=== PATIENT | female | born 1965 | race Two or more races ===

== ENCOUNTER 2023-06-02 08:58 | Day surgery (SDC) | payer OTHER ==
[~2023-06-02] VITALS: Ht 170.2 cm; Wt 99.8 kg
[~2023-06-02 08:58] MED LIST: ALLO100T PO; BENA40TA70 PO; CHLO25TA2 PO; METO-158 PO
[2023-06-02] MEDS ORDERED: IODIXANOL 320MG/ML 100ML BTL IV ONE ×2 (09:48→10:08)
[2023-06-02] MEDS ORDERED: LIDOCAINE 2%HCL (LOCAL ANESTH.) INJ 20ML MDV ONE (09:48)
[2023-06-02] MEDS ORDERED: ANGIOMAX 250 MG VIAL IV ONE (09:59)
[2023-06-02] MEDS ORDERED: MIDAZOLAM HCL 2MG/2ML 2ml VIAL (1mg/ml) ONE (10:00)
[2023-06-02] MEDS ORDERED: VERAPAMIL 2.5MG/ML INJ 2ML VIAL IV ONE (10:00)
[2023-06-02] MEDS ORDERED: SODIUM CHL 0.9% 0 ML ONE (10:00)
[2023-06-02] MEDS ORDERED: fentaNYL CITRATE 100 MCG/2 ML VL ONE (10:00)
[2023-06-02] MEDS ORDERED: HEPARIN SODIUM (PORCINE) 5000 UNITS/ML 1ML VIAL ONE (10:00)
== END 2023-06-02 12:35 | disposition home or self-care (01) ==
LOC: CATH 08:58
PROVIDERS: ATTEND Internal Medicine
DX: R94.39 Abnormal result of other cardiovascular function study (principal); I20.89 Other forms of angina pectoris; I77.1 Stricture of artery; I49.9 Cardiac arrhythmia, unspecified; I10 Essential (primary) hypertension; R73.03 Prediabetes; R07.89 Other chest pain; Z79.899 Other long term (current) drug therapy
CPT/HCPCS: 93005; 93458; C1725; C1894; J1644; J2250; J3010; J7030; Q9967; 99152

== ENCOUNTER 2024-05-30 13:16 | Inpatient (IN) | payer MEDICAID, OTHER ==
[~2024-05-30] VITALS: Ht 170.2 cm; Wt 113.2 kg
[~2024-05-30 13:16] MED LIST changes: -BENA40TA70 PO; +BENA40TA71 PO; +MUPI2OIN2 TOP
[2024-05-30 14:05] LABS: Basophils # (auto) 0 10 ^3/uL (0-0.2); Basophils % (auto) 0.7 % (0.0-2.0); Eosinophils # (auto) 0.1 10 ^3/uL (0-0.8); Eosinophils % (auto) 1.8 % (0.0-7.0); Hematocrit 33.3 % (36.0-46.0); Lymphocytes # (auto) 2.5 10 ^3/uL (0.4-5.4); Mean Corpuscular Hemoglobin 27.7 pg (28.0-32.0); Monocytes # (auto) 0.4 10 ^3/uL (0-1.3); Monocytes % (auto) 5.4 % (0.0-12.0); Neutrophils # (auto) 3.8 10 ^3/uL (1.6-8.6); Neutrophils % (auto) 56.1 % (37.0-80.0); Nucleated Red Blood Cells % 0.2 %; Platelet Count (auto) 202 10^3/uL (140-450); Red Blood Cells 3.96 10^6/uL (4.0-5.20); Red Cell Distribution Width 17.2 % (11.8-14.3); White Blood Cell 6.9 10^3/uL (4.4-10.8)
[2024-05-30] MEDS: ASPirin 325 MG TAB PO ONE (14:05)
[2024-05-30 14:08] LABS: Chloride 110 mmol/L (98-107); Potassium 3.6 mmol/L (3.5-5.1); Sodium 143 mmol/L (136-145)
[2024-05-30 14:09] LABS: Anion Gap 7 (5-15); Calcium 9.2 mg/dL (8.7-10.4); Carbon Dioxide 26 mmol/L (20-31)
[2024-05-30 14:14] LABS: BUN/Creatinine Ratio 13.5 (10.0-20.0); Blood Urea Nitrogen 14 mg/dL (9-23); Glucose 79 mg/dL (74-106)
[2024-05-30 14:59] LABS: Urine Bacteria None Seen /hpf (None Seen)
[2024-05-30 15:07] LABS: Urine Blood Negative /uL (Negative); Urine Clarity Clear (Clear); Urine Color Light-Yellow (Yellow); Urine Protein, UAD Negative (Negative); Urine Specific Gravity 1.018 (1.001-1.035); Urine Urobilinogen Normal (Negative); Urine WBC 1 /hpf (0 - 5); Urine pH 5.5 (5.0-9.0)
[2024-05-30] MEDS ORDERED: MORPHINE SULFATE INJ 2 MG/ml SYRG IV PRN ×2 (21:30)
[2024-05-30] MEDS ORDERED: ONDANSETRON HCL 4 MG/2 ML VIAL IV PRN (21:30)
[2024-05-30] MEDS ORDERED: NITROGLYCERIN 0.4 MG SL TAB SL PRN (21:30)
[2024-05-30] MEDS: SODIUM CHLOR 0.9% PF (SALINE LOCK) 10ML VIAL/SYR IV SCH (22:00)
[2024-05-30 22:09] LABS: Amphetamine Screen, Urine Neg (NEGATIVE); Barbiturate Scree,Urine Neg (NEGATIVE); Benzodiazephine Screen, Urine Neg (NEGATIVE); Cannabinoid Screen, Urine Neg (NEGATIVE); Cocaine Screen, Urine Neg (NEGATIVE); Opiate Scree,Urine Neg (NEGATIVE); Phencyclidine Screen, Urine Neg (NEGATIVE)
[2024-05-31 02:52] VITALS: PULSE 61; RESP 15; O2SAT 100
[2024-05-31 04:41] LABS: Basophils # (auto) 0.1 10 ^3/uL (0-0.2); Basophils % (auto) 0.8 % (0.0-2.0); Eosinophils # (auto) 0.2 10 ^3/uL (0-0.8); Hematocrit 31.7 % (36.0-46.0); Hemoglobin 10.4 g/dL (12.2-16.2); Lymphocytes # (auto) 1.9 10 ^3/uL (0.4-5.4); Lymphocytes % (auto) 30.2 % (10.0-50.0); Mean Corpuscular Hemoglobin 27.7 pg (28.0-32.0); Mean Corpuscular Hgb Conc. 32.8 g/dL (32.0-36.0); Mean Corpuscular Volume 84.6 fL (80.0-100.0); Monocytes # (auto) 0.5 10 ^3/uL (0-1.3); Monocytes % (auto) 8.4 % (0.0-12.0); Neutrophils # (auto) 3.7 10 ^3/uL (1.6-8.6); Neutrophils % (auto) 57.6 % (37.0-80.0); Nucleated Red Blood Cells % 0.1 %; Platelet Count (auto) 173 10^3/uL (140-450); Red Blood Cells 3.74 10^6/uL (4.0-5.20); Red Cell Distribution Width 17.1 % (11.8-14.3); White Blood Cell 6.4 10^3/uL (4.4-10.8)
[2024-05-31 04:56] LABS: INR 1.06 (0.9-1.15); Partial Thromboplastin Time 27.8 SEC (24.5-34.5); Prothrombin Time 11.2 sec (9.3-11.8)
[2024-05-31 04:58] LABS: Albumin 3.9 g/dL (3.2-4.8); Alkaline Phosphatase 78 U/L (46-116); Anion Gap 9 (5-15); Aspartate Aminotransferase 12 U/L (13-40); BUN/Creatinine Ratio 12.8 (10.0-20.0); Bilirubin, Total 0.4 mg/dL (0.2-1.0); Blood Urea Nitrogen 11 mg/dL (9-23); Calcium 8.9 mg/dL (8.7-10.4); Carbon Dioxide 23 mmol/L (20-31); Chloride 110 mmol/L (98-107); Glucose 85 mg/dL (74-106); Potassium 3.5 mmol/L (3.5-5.1); Sodium 142 mmol/L (136-145); Total Protein 6.7 g/dL (5.7-8.2)
[2024-05-31 05:16] LABS: Alanine Aminotransferase 9 U/L (7-40)
[2024-05-31] MEDS ORDERED: FUROSEMIDE 40 MG/4 ML VIAL IV SCH (10:00)
[2024-05-31] MEDS: CHLORTHALIDONE 25 MG TAB PO SCH (10:00)
[2024-05-31] MEDS: METOPROLOL TARTRATE 50 MG TAB PO SCH (10:00)
[2024-05-31] MEDS: ENOXAPARIN SOD 40 MG/0.4 ML SYRINGE SC SCH (10:12)
[2024-05-31 10:50] LABS: COVID19 ANTIGEN SOFIA FIA NEGATIVE (NEGATIVE)
[2024-05-31] MEDS: ALLOPURINOL 100 MG TAB PO SCH (11:28)
[2024-05-31 11:53] LABS: Triglycerides 118 mg/dL (< 150)
[2024-05-31 11:54] LABS: Cholesterol 126 mg/dL (< 200); LDL Cholesterol 82 mg/dL (< 100)
[2024-05-31 11:55] LABS: HDL Cholesterol 30 mg/dL (40-59)
[2024-05-31 14:27] VITALS: BP 135/70; PULSE 59; RESP 17; TEMP 98.4; O2SAT 100
[2024-05-31 14:39] VITALS: BP 135/70; PULSE 59; RESP 17; TEMP 98.4; O2SAT 100
[2024-05-31] MEDS: ASPirin 81 mg TAB PO ONE (15:22)
[2024-05-31 17:03] VITALS: BP 125/59; PULSE 58; RESP 16; TEMP 98; O2SAT 100
[2024-05-31] MEDS: ERGOCALCIFEROL 50,000 UNIT(1.25MG) CAP PO SCH (17:23)
[2024-05-31] MEDS: CYANOCOBALAMIN (B-12) 1000 MCG/1 ML VIAL IM ONE (17:26)
[2024-05-31 20:00] VITALS: PULSE 65; PULSE 66; RESP 19; O2SAT 94
[2024-05-31 21:00] VITALS: BP 107/40; PULSE 66; RESP 19; TEMP 98.6; O2SAT 94
[2024-05-31] MEDS: BENAZEPRIL HCL 10 MG TAB PO ONE (21:00)
[2024-05-31] MEDS: ATORVASTATIN 20 MG TAB PO SCH (22:11)
[2024-06-01] VITALS (7 sets, daily range): BP systolic 102–132; BP diastolic 46–72; PULSE 52–76; RESP 16–19; TEMP 37; O2SAT 95–100
[2024-06-01 06:50] LABS: Chloride 112 mmol/L (98-107); Potassium 3.8 mmol/L (3.5-5.1); Sodium 142 mmol/L (136-145)
[2024-06-01 06:51] LABS: Anion Gap 4 (5-15); Calcium 8.8 mg/dL (8.7-10.4); Carbon Dioxide 26 mmol/L (20-31)
[2024-06-01 06:56] LABS: BUN/Creatinine Ratio 12.9 (10.0-20.0); Blood Urea Nitrogen 11 mg/dL (9-23); Glucose 84 mg/dL (74-106)
[2024-06-01 07:06] LABS: Basophils # (auto) 0 10 ^3/uL (0-0.2); Basophils % (auto) 0.4 % (0.0-2.0); Eosinophils # (auto) 0.1 10 ^3/uL (0-0.8); Eosinophils % (auto) 2.7 % (0.0-7.0); Hematocrit 30.7 % (36.0-46.0); Lymphocytes # (auto) 1.5 10 ^3/uL (0.4-5.4); Lymphocytes % (auto) 32.6 % (10.0-50.0); Mean Corpuscular Hemoglobin 27.3 pg (28.0-32.0); Mean Corpuscular Hgb Conc. 32.6 g/dL (32.0-36.0); Mean Corpuscular Volume 83.9 fL (80.0-100.0); Monocytes # (auto) 0.5 10 ^3/uL (0-1.3); Monocytes % (auto) 10.2 % (0.0-12.0); Neutrophils # (auto) 2.5 10 ^3/uL (1.6-8.6); Neutrophils % (auto) 54.1 % (37.0-80.0); Nucleated Red Blood Cells % 0.2 %; Platelet Count (auto) 168 10^3/uL (140-450); Red Blood Cells 3.65 10^6/uL (4.0-5.20); Red Cell Distribution Width 16.6 % (11.8-14.3); White Blood Cell 4.6 10^3/uL (4.4-10.8)
[2024-06-01] MEDS: BENAZEPRIL HCL 10 MG TAB PO SCH (10:35)
[2024-06-01] MEDS: ASPirin 81 mg TAB PO SCH (10:36)
[2024-06-01] MEDS: ACETAMINOPHEN 325 MG TAB PO PRN (10:37)
[2024-06-01] MEDS: FUROSEMIDE 20 MG TAB PO SCH (10:39)
[2024-06-01] MEDS ORDERED: FURO1TAB33 PO (20:00)
== END 2024-06-01 19:25 | disposition home or self-care (01) | DRG 194 ==
LOC: ER 13:16 → TELE 21:19 → TELE-EAST 05-31 14:01
PROVIDERS: ADMIT Internal Medicine; ATTEND Internal Medicine
DX: I11.0 Hypertensive heart disease with heart failure (principal); E53.8 Deficiency of other specified B group vitamins; I50.41 Acute combined systolic (congestive) and diastolic (congestive) heart failure; M10.9 Gout, unspecified; E55.9 Vitamin D deficiency, unspecified; Z79.899 Other long term (current) drug therapy
CPT/HCPCS: 36415; 71045; 71250; 76775; 80048; 80053; 80061; 80307; 81001; 82306; 82607; 83036; 83880; 84443; 84484; 85025; 85610; 85730; 87426; 93005; 93306; 99291; G0378